=== PATIENT | female | born 1970 | race Two or more races ===

== ENCOUNTER 2019-08-10 08:35 | Day surgery (SDC) | payer BC ==
[2019-08-10] VITALS (8 sets, daily range): BP systolic 117–143; BP diastolic 67–88
[~2019-08-10] VITALS: Ht 165.1 cm; Wt 56.7 kg
[~2019-08-10 08:35] MED LIST: LR 1000ml 1,000 ML IVLG SCH
[2019-08-10] MEDS ORDERED: LR 1000ml 1,000 ML IVLG SCH (08:49)
--- NOTE | 2019-08-10 08:53 | Anethesia Preoperative Eval ---
Anesthesia Pre-op PMH/ROS General Date of Evaluation: Aug 10, 2019 Time of Evaluation: 08:52 Anesthesiologist: joann ASA Score: ASA 3 Mallampati Score Class I : Soft palate, uvula, fauces, pillars visible Class II: Soft palate, uvula, fauces visible Class III: Soft palate, base of uvula visible Class IV: Only hard plate visible Mallampati Classification: Class II Surgeon: jared Diagnosis: gerd Surgical Procedure: egd/colonoscopy Anesthesia History: none Social History: alcohol use Family History: no anesthesia problems Allergies: Coded Allergies: No Known Allergies (Unverified , 08/09/19) Medications: see eMAR Patient NPO?: Yes Past Medical History Cardiovascular: Reports: HTN Gastrointestinal/Genitourinary: Reports: GERD PSxH Narrative: x3 Anesthesia Pre-op Phys. Exam Physician Exam Last Vital Signs Date Time Temp Pulse Resp B/P (MAP) Pulse Ox O2 Delivery O2 Flow Rate FiO2 08/10/19 09:29 97.5 79 20 117/67 98 Room Air Constitutional: NAD Neurologic: CN 2-12 intact Cardiovascular: RRR Respiratory: CTA Gastrointestinal: S/NT/ND Airway Exam Mallampati Score: Class II MO: full Neck: flexible TMD: 2fb ROM: full Teeth: intact Anesthesia Pre-op A/P Risk Assessment & Plan Assessment: asa3 Plan: mac Status Change Before Surgery: No Pre-Antibiotics Drug: Claire Arellano MD Aug 10, 2019 08:53
[2019-08-10] MEDS ORDERED: fentaNYL 100 mcg/2 mL IV PRN (09:00)
[2019-08-10] MEDS ORDERED: Midazolam 2mg/2ml Inj IVP PRN (09:00)
[2019-08-10] MEDS ORDERED: Atropine Inj 1mg/10ml Syr IV PRN (09:00)
[2019-08-10] MEDS ORDERED: DiphenhydrAMINE 50mg/ml Inj IVP PRN (09:00)
[2019-08-10] MEDS ORDERED: CANDESARTAN CILE4 MG PO (09:24)
[2019-08-10] MEDS ORDERED: CANDESARTAN-HC1 EAC2 PO (09:24)
[2019-08-10] MEDS ORDERED: LR 1000ml ONE (10:00)
[2019-08-10] MEDS ORDERED: Propofol 200mg/20ml IV ONE (10:00)
[2019-08-10] MEDS ORDERED: Lidocaine 1% MPF 10mg/ml 5ml ONE (10:00)
--- NOTE | 2019-08-10 10:24 | Short Stay Surgery H&P ---
History of Present Illness History of Present Illness Chief Complaint see typed H&P HPI Thuy Gold is a 48 year old female who was admitted on for Gerd And Screening Patient History Allergies: Coded Allergies: No Known Allergies (Unverified , 08/09/19) Medication History Scheduled Candesartan/Hydrochlorothiazid (Candesartan-Hctz 32-25 Mg Tab), 1 EACH PO DA, ( Reported) Physical Exam Vital Signs Last Vital Signs Date Time Temp Pulse Resp B/P (MAP) Pulse Ox O2 Delivery O2 Flow Rate FiO2 08/10/19 09:29 97.5 79 20 117/67 98 Room Air Labs Laboratory Tests Test 08/10/19 08:45 Urine HCG, Qualitative Negative (NEGATIVE) Plan Attestation Are the patient's medical conditions optimized for surgery? Yadira Ba MD Aug 10, 2019 10:24
--- NOTE | 2019-08-10 10:25 | Pre-Procedure Note/Attestation ---
Pre-Procedure Note/Attestation Complete Prior to Procedure Planned Procedure: not applicable Procedure Narrative: EGD Colon Indications for Procedure Pre-Operative Diagnosis: abd pain screening Attestation I attest that I discussed the nature of the procedure; its benefits; risks and complications; and alternatives (and the risks and benefits of such alternatives ), prior to the procedure, with the patient (or the patient's legal truck sales representative). I attest that, if there was a reasonable possibility of needing a blood transfusion, the patient (or the patient's legal truck sales representative) was given the [facility] standardized written summary, pursuant to the [place] Blood Safety Act ([place] Health and Safety Code # 1645, as amended). I attest that I re-evaluated the patient just prior to the surgery and that there has been no change in the patient's H&P, except as documented below: Yadira Ba MD Aug 10, 2019 10:25
--- NOTE | 2019-08-11 00:01 | Operative Note - Dictated ---
DATE OF OPERATION: 08/10/2019 GASTROENTEROLOGY PROCEDURE REPORT PROCEDURE: Upper gastrointestinal endoscopy with biopsy as well as colonoscopy with biopsy. SURGEON: Yadira Ba M.D. ANESTHESIA: Please see the separate anesthesiologist notes for details. PRE-ENDOSCOPIC DIAGNOSES: 1. Epigastric abdominal pain. 2. Screening colonoscopy. POST-ENDOSCOPIC DIAGNOSES: 1. A 1 to 2 cm hiatal hernia. 2. Erosion under gastric site consistent with gastroesophageal reflux, status post biopsy. 3. A 2 to 3 mm upper esophageal polyp, status post biopsy removal. 4. Status post random biopsies with normal duodenum and antrum. 5. Normal terminal ileum to about 10 cm. 6. Diminutive polyp in the distal descending colon, status post biopsy removal. 7. External hemorrhoidal tags. DESCRIPTION OF PROCEDURE: The procedure, its risks, indications, alternatives, and possible complications were explained to the patient and informed consent was obtained. The patient was then sedated in the left lateral decubitus position. A diagnostic upper endoscope was introduced through the oropharynx and advanced to the duodenum. The endoscope was then gradually withdrawn. Thereafter rectal exam was done. The colonoscope was introduced into the rectum and advanced 10 cm into the terminal ileum. The colonoscope was then gradually withdrawn. Procedures and findings are as listed above. The patient tolerated the procedure well and was left to recovery in good condition. COMPLICATIONS: None. RECOMMENDATIONS: 1. Follow up biopsy results. 2. Begin Pepcid 40 mg p.o. nightly. 3. Outpatient followup. Thank you for asking me to participate in care this patient. Yadria Ba M.D. DR: JONNY JOB#: [id number] CC: Drea Coker
--- NOTE | 2019-08-11 08:11 | Immediate Post-Op Evaluation ---
Immediate Post-Op Evalulation Immediate Post-Op Evalulation Procedure: egd/colonoscopy w/bx Date of Evaluation: Aug 10, 2019 Time of Evaluation: 11:27 IV Fluids: 600ml lr Blood Products: none Estimated Blood Loss: negligible Blood Pressure Systolic: 140 Blood Pressure Diastolic: 73 Pulse Rate: 64 Respiratory Rate: 18 O2 Sat by Pulse Oximetry: 100 Temperature (Fahrenheit): 97.1 Pain Score (1-10): 0 Nausea: No Vomiting: No Complications none Patient Status: awake, reacts, patent Hydration Status: adequate Drug: Claire Arellano MD Aug 11, 2019 08:11
[2019-08-11 08:13] VITALS: BP 126/81
--- NOTE | 2019-08-11 08:13 | 48 Hour Post Anesthesia Eval ---
Post Anesthesia Evaluation Procedure: egd/colonoscopy w/bx Date of Evaluation: Aug 10, 2019 Time of Evaluation: 11:29 Blood Pressure Systolic: 126 0: 81 Pulse Rate: 66 Respiratory Rate: 18 Temperature (Fahrenheit): 97.1 O2 Sat by Pulse Oximetry: 100 Airway: patent Nausea: No Vomiting: No Pain Intensity: 0 Hydration Status: adequate Cardiopulmonary Status: stable Mental Status/LOC: patient returned to baseline Post-Anesthesia Complications: none Follow-up care needed: N/A Claire García MD Aug 11, 2019 08:13
== END 2019-08-10 12:15 | disposition home or self-care (01) ==
LOC: GAS 08:35
DX: Z12.11 Encounter for screening for malignant neoplasm of colon (principal); R10.13 Epigastric pain; K44.9 Diaphragmatic hernia without obstruction or gangrene; K22.8 Other specified diseases of esophagus; K63.5 Polyp of colon; K64.4 Residual hemorrhoidal skin tags; I10 Essential (primary) hypertension; R12 Heartburn; K21.9 Gastro-esophageal reflux disease without esophagitis
CPT/HCPCS: 43239; 45378; 81025; J2704; J7120; 94003; 94150